=== PATIENT | female | born 1995 | race Caucasian/White ===

== ENCOUNTER 2017-01-12 11:15 | Day surgery (SDC) | payer OTHER ==
[~2017-01-12 11:15] MED LIST: Buffered Lidocaine 0.9% SYRIN* 5 ML/SYR SYRINGE INTRADERM ONE; Famotidine IV* 10 MG/ML 2 ML (20 mg) IV ONE; Levalbuterol 0.63MG/3ML NEB INH ONE; Scopolamine 1.5 mg* PATCH TRANSDERM ONE
[2017-01-12] MEDS ORDERED: Scopolamine 1.5 mg* PATCH ONE (11:17)
[2017-01-12] MEDS ORDERED: Buffered Lidocaine 0.9% SYRIN* 5 ML/SYR SYRINGE ONE (11:17)
[2017-01-12] MEDS ORDERED: Famotidine IV* 10 MG/ML 2 ML (20 mg) ONE (11:17)
[2017-01-12] MEDS ORDERED: Levalbuterol 1.25MG/0.5ML NEB ONE (11:17)
[2017-01-12] MEDS ORDERED: Midazolam* 1 MG/ML 5 ML VIAL (5 MG) ONE (12:29)
[2017-01-12] MEDS ORDERED: Ondansetron INJ* 2 MG/ML VIAL ONE (12:29)
[2017-01-12] MEDS ORDERED: KETAMINE HCL* 50 MG/ML 10 ML VIAL ONE (12:29)
[2017-01-12] MEDS ORDERED: Propofol* 10 MG/ML 20 ML BTL IV PUSH ONE (12:29)
[2017-01-12] MEDS ORDERED: Dexamethasone IV* 4 MG/ML 1 ML (4 MG) ONE (12:29)
[2017-01-12] MEDS ORDERED: Lidocaine 2% PF * 5 ML VIAL ONE (12:29)
[2017-01-12] MEDS ORDERED: fentaNYL* 50 MCG/ML 2 ML VIAL (100 MCG VIAL) ONE (12:29)
[2017-01-12] MEDS ORDERED: Lidocaine 2% EPI 1:200000 MPF* 20 ML VIAL ONE (13:11)
[2017-01-12] MEDS ORDERED: Oxymetazoline 0.05% NASAL SPR* 15 ML BTL ONE (13:11)
[2017-01-12] MEDS ORDERED: EPHEDrine (Pressors)* 50 MG/ML VIAL ONE (13:38)
[2017-01-12] MEDS ORDERED: Ondansetron INJ* 2 MG/ML VIAL IV PRN (14:06)
[2017-01-12] MEDS ORDERED: fentaNYL* 50 MCG/ML 2 ML VIAL (100 MCG VIAL) IV PRN (14:06)
[2017-01-12] MEDS ORDERED: oxyCODONE/Acetamin 5/325 MG* TAB ONE ×2 (14:21→15:09)
[2017-01-12] MEDS: oxyCODONE/Acetamin 5/325 MG* TAB PO PRN ×2 (14:22→15:09)
[2017-01-12] MEDS ORDERED: Labetalol IV* 5 MG/ML 20 ML VIAL ONE (14:51)
[2017-01-12 15:53] VITALS: BP 149/83
--- NOTE | 2017-01-13 05:51 | OP ---
DATE OF OPERATION: 01/12/17 - [facility] DATE OF : 89 SURGEON: Duran Lyman MD ANESTHESIOLOGIST: Sj Murphy MD ANESTHESIA: General PRE-OP DIAGNOSES: Deviated nasal septum and hypertrophied nasal turbinates, nasal dyspnea. POST-OP DIAGNOSES: Deviated nasal septum and hypertrophied nasal turbinates, nasal dyspnea. OPERATIVE PROCEDURE: Septoplasty and submucosal resection of the inferior turbinates. BRIEF HISTORY: This pleasant 21-year-old female with longstanding history of nasal steroid use continued to have significant nasal dyspnea, elected for surgical management. DESCRIPTION OF PROCEDURE: The patient was taken to the operating room, general anesthetic given, the patient intubated with LMA. Nose was decongested with Afrin placed pledgets. Subsequently, 2% lidocaine with epinephrine was infiltrated in the mucosa of the septum. A hemitransfixion incision was created. Small amount of mucoperichondrial flap was removed. Small amounts of cartilages removed from the inferior crest area and its concave surface was scored to replace in the midline. Multiple mattress sutures were used to secure the septum. Next, we turned our attention to the inferior turbinates. Small mucosal incision was created anteriorly. Submucosal resection was carried out by using a microshaver resecting some of the submucosal tissue and bone. Once this was done on both sides, packing was placed for hemostasis. The patient was then awakened and sent to recovery room in stable condition. Instrument and sponge count correct. Blood loss minimal. [id number]/CPS #: [id number] MTDD
[2017-01-15] MEDS ORDERED: Scopolomine PATCH Remove* 1 NOTE MISC PATCH OFF ONE (06:00)
== END 2017-01-12 16:05 | disposition home or self-care (01) ==
LOC: OR 11:15
PROVIDERS: ATTEND Otolaryngology
DX: J34.2 Deviated nasal septum (principal); J34.3 Hypertrophy of nasal turbinates; J45.909 Unspecified asthma, uncomplicated; J31.0 Chronic rhinitis
CPT/HCPCS: 81025; A9270-GY; J1100; J2250; J2405; J2704; J3010

== ENCOUNTER 2017-02-21 08:07 | Emergency (ER) | payer OTHER ==
[2017-02-21 08:17] VITALS: BP 126/78
--- NOTE | 2017-02-21 08:24 | UC ---
Lower Extremity/Ankle HPI - HPI Summary HPI Summary: States her dog knocked her over yesterday and she twisted left knee. c/o anterior throbbing knee pain when walking, pain subsides at rest. Has had knee concerns in the past and went to [facility] in the past for this. She can not bend the knee . [ End ] - History of Current Complaint Chief Complaint: UCLowerExtremity Stated Complaint: LEFT KNEE INJURY Time Seen by Provider: 02/21/17 08:19 Hx Obtained From: Patient Hx Last Menstrual Period: 02/11/17 Onset/Duration: Sudden Onset Severity Initially: Moderate Severity Currently: Moderate Aggravating Factor(s): Standing Alleviating Factor(s): Rest Able to Bear Weight: Yes - Allergies/Home Medications Allergies/Adverse Reactions: Allergies Allergy/AdvReac Type Severity Reaction Status Date / Time Cephalexin [From Keflex] Allergy Swelling Verified 02/21/17 08:17 Ciprofloxacin [From Cipro] Allergy Swelling Verified 02/21/17 08:17 Tetracycline Allergy Swelling Verified 02/21/17 08:17 PMH/Surg Hx/FS Hx/Imm Hx Previously Healthy: Yes - Surgical History Surgical History: Yes Surgery Procedure, Year, and Place: "JAW SURGERY"-5 YEARS AGO. CYST REMOVED FROM NECK. WISDOM TEETH. REMOVAL OF METAL FROM SURGERY - Family History Known Family History: Positive: None - Social History Occupation: Employed Part-time - [employer], Student Alcohol Use: Rare Substance Use Type: None Smoking Status (MU): Never Smoked Tobacco - Immunization History Most Recent Influenza Vaccination: no Review of Systems Constitutional: Negative Skin: Negative Eyes: Negative ENT: Negative Respiratory: Negative Cardiovascular: Negative Gastrointestinal: Negative Genitourinary: Negative Motor: Negative Neurovascular: Negative Musculoskeletal: Arthralgia, Decreased ROM, Edema Neurological: Negative Psychological: Negative All Other Systems Reviewed And Are Negative: Yes Physical Exam Triage Information Reviewed: Yes Appearance: Well-Appearing, No Pain Distress, Well-Nourished Vital Signs: Initial Vital Signs Temp 98.3 F 02/21/17 08:12 Pulse 86 02/21/17 08:12 Resp 14 02/21/17 08:12 BP 126/78 02/21/17 08:12 Pulse Ox 100 02/21/17 08:12 Vital Signs Reviewed: Yes Respiratory Exam: Normal Cardiovascular Exam: Normal Musculoskeletal: Positive: ROM Limited @ - left knee with severely reduced ROM. positive lateral joint line pain and supra patellar pain to palpation. neg Homans. skin warm and dry. mild swelling in the knee . no popliteal fossa tenderness or Davison's Cyst Neurological Exam: Normal Psychological Exam: Normal Skin Exam: Normal Lower Extremity Course/Dx - Differential Dx/Diagnosis Differential Diagnosis/HQI/PQRI: Sprain, Strain Provider Diagnoses: Internal derangement of the left knee / Left meniscal injury Discharge - Discharge Plan Condition: Good Disposition: HOME Patient Education Materials: Meniscus Tear (ED) Forms: *Work Release Referrals: Munir Andrews MD [Primary Care Provider] - 3 Days Christina FRAUSTO,Tommy Tate [Medical Doctor] - As Soon As Possible ([facility] referral )
[2017-02-21] MEDS ORDERED: Acetaminophen TAB* 325 MG PO ONE (08:29)
--- NOTE | 2017-02-21 08:52 | RAD ---
Indication: LEFT knee pain following twisting injury. Comparison: No relevant prior exams available on the [facility] PACS for comparison. Technique: AP and lateral views LEFT knee. Report: Small suprapatellar joint effusion and edema at the infrapatellar fat pad. Subtle contour irregularity at the medial femoral condyle anteriorly reference the lateral view is concerning for potential osteochondral injury. Normal articular alignment. Anterior soft tissue swelling. IMPRESSION: Joint effusion and potential although not definitive osteochondral injury of the anterior weightbearing portion of the medial femoral condyle. The differential would include a pre-existing small early button osteophyte. Correlate with clinical assessment and consider MRI for further evaluation if deemed appropriate.
== END 2017-02-21 09:02 | disposition home or self-care (01) ==
LOC: UCCORT 08:07
DX: M23.307 Other meniscus derangements, unspecified meniscus, left knee (principal); S83.8X2A Sprain of other specified parts of left knee, initial encounter; Y93.9 Activity, unspecified; Y92.9 Unspecified place or not applicable; W01.0XXA Fall on same level from slipping, tripping and stumbling without subsequent striking against object, initial encounter
CPT/HCPCS: 99213; A9270-GY; G0463

== ENCOUNTER 2019-03-09 09:21 | Emergency (ER) | payer OTHER | END 2019-03-09 10:15 | disposition left against medical advice (07) | LOC: UCCORT 09:21 | DX: R68.89 Other general symptoms and signs (principal); H92.09 Otalgia, unspecified ear; Z53.21 Procedure and treatment not carried out due to patient leaving prior to being seen by health care provider ==